=== PATIENT | male | born 1965 | race Caucasian/White ===

== ENCOUNTER 2016-12-09 02:06 | Emergency (ER) | payer SELFPAY ==
--- NOTE | 2016-12-09 03:17 | PHYS DOC ---
Adult General Chief Complaint Chief Complaint: CPR/FULL ARREST HPI HPI Patient is a 51 year old gentleman who presents by EMS of the [facility]. They report that they were called by the approximately 1:13 AM because she found him unresponsive and with coffee-ground emesis on his face on the floor. reports that the patient does have a history of severe alcohol abuse in the past and she reports over the last couple days he has been eating or drinking anything and just hasn't been feeling well. She reports that she found him unresponsive earlier today and called EMS. EMS reports that they arrived within 3-5 minutes and ACLS was initiated. Upon arrival EMS reports that there initial rhythm was asystole. Patient was apneic. Patient received multiple rounds of epinephrine. Patient initially was in V. fib and received electrocardioversion however unsuccessfully patient became asystolic and he remained asystolic throughout the course of the remainder of his toes. Patient was intubated with an LMA by EMS. Upon arrival to the ER, patient was pulseless , apneic, unresponsive, he had coffee-ground emesis in his oropharynx and face. Patient was pale. There is no spontaneous respirations and there is no spontaneous pulse. Patient's electrolytes activity revealed him to be asystolic. ACLS was reinstituted again in the ED. Patient received multiple rounds of epinephrine, CPR, and endotracheal intubation. Indication: Respiratory failure Consent: Unable to give consent due to emergent nature. Medications Used: None Procedure: The patient was placed in the appropriate position. Intubation was performed by Dr. Chua utilizing a 40 Mac, a 7.5 ET tube. Endotracheal tube was secured at 24 cm at the lip. End-tidal CO2 was confirmed, patient equal breath sounds bilaterally. There is no bowel sounds audible with bagging patient. Initial confirmation of placement included bilateral breath sounds, tube fogging, adequate chest rise, adequate pulse oximetry reading. Complications: none. ACLS resume. The family was informed of the patient's dire circumstances. After multiple rounds of epinephrine and ACLS in the ER the patient was pronounced at 2:24 AM. I discussed the case with Dr. Dustin Adrian nurse practitioner adrian stoner . She feels comfortable that Dr. Adrian will feel comfortable signing the patient says certificate. The patient will not be a medical technician assistant's case. Given the patient's history of alcohol abuse in the past and is coffee- ground emesis I feel that this was not a suspicious . There is no evidence of trauma noted on the body. Physical exam: This is a well-developed well-nourished obese white male who presents here today by EMS was pulseless and apneic. Patient no spontaneous respirations. There is no spontaneous pulse. Patient's pupils were 4 mm and unreactive. Patient not respond to any painful stimuli. Patient has a GCS of 3. Patient pronounced at 2:24 AM. Assessment and plan: #1 respiratory failure. Alcohol-related liver disease, alcoholism, coffee-ground emesis, GI bleed, Critical care time was 35 minutes exclusive of procedures. Review of Systems Review of Systems Unable to obtain secondary to the patient's condition Physical Exam Physical Exam Limited secondary to the patient's unresponsiveness and asystole and apnea and [facility] status Please see above for full physical exam findings EKG EKG [] Radiology/Procedures Radiology/Procedures [] Course & Med Decision Making Course & Med Decision Making Pertinent Labs and Imaging studies reviewed. (See chart for details) [] Dragon Disclaimer Dragon Disclaimer This electronic medical record was generated, in whole or in part, using a voice recognition dictation system. Departure Departure Impression: Primary Impression: GI bleed Additional Impressions: Coffee ground emesis Alcoholism Respiratory failure Cardiac failure Cardiogenic shock Disposition: 20 Condition: Referrals: DUSTIN ADRIAN DO (PCP) Problem Qualifiers Primary Impression: GI bleed GI bleed type/associated pathology: unspecified gastrointestinal hemorrhage type Qualified Codes: K92.2 - Gastrointestinal hemorrhage, unspecified Additional Impressions: Respiratory failure Chronicity: acute Respiratory failure complication: hypoxia and hypercapnia Qualified Codes: J96.01 - Acute respiratory failure with hypoxia; J96.02 - Acute respiratory failure with hypercapnia Cardiac failure Heart failure type: unspecified heart failure type Heart failure chronicity: acute Qualified Codes: I50.9 - Heart failure, unspecified JOB HUDSON MD December 09, 2016 03:17
[2016-12-09] MEDS ORDERED: EPINEPHrine SYRINGE 1 MG/10 ML SYRINGE ONE (07:00)
== END 2016-12-09 04:00 | disposition expired ==
LOC: ER 02:06
DX: I50.9 Heart failure, unspecified (principal); J96.90 Respiratory failure, unspecified, unspecified whether with hypoxia or hypercapnia; R57.0 Cardiogenic shock; I46.9 Cardiac arrest, cause unspecified; K92.2 Gastrointestinal hemorrhage, unspecified; F10.20 Alcohol dependence, uncomplicated; R11.10 Vomiting, unspecified
CPT/HCPCS: 31500; 92950; 99291; J0171